=== PATIENT | female | born 1970 | race Caucasian/White ===

== ENCOUNTER 2017-03-18 15:25 | Emergency (ER) | payer MEDICAID ==
[~2017-03-18] VITALS: Ht 160 cm; Wt 93.0 kg
[~2017-03-18 15:25] MED LIST: UNKNOWN BP MED
[2017-03-18 15:28] VITALS: BP 146/78
--- NOTE | 2017-03-18 17:20 | NUR ---
PT AMBULATED TO BED 3.
--- NOTE | 2017-03-18 17:25 | NUR ---
47F BIB SELF C/O MID-CHEST PRESSURE, RADIATES TO BACK, 5/10 X 3 DAYS; PT STATES NO TRAUMA OR INJURY TO CHEST AT THIS TIME; PT AA&OX4, PERRLA AT THIS TIME, BL LUNG SOUNDS CLEAR, RR EVEN/UNLABORED, SKIN IS WARM/DRY/INTACT AT THIS TIME; PT STATES NO N/V/D AT THIS TIME; STEADY GAIT; PT PLACED ON A MONITOR, RESTING IN BED WITH HOB ELEVATED AND IN LOWEST POSITION; POSITIONED FOR COMFORT; ER MD MADE AWARE OF STATUS; WILL CONTINUE TO MONITOR.
--- NOTE | 2017-03-18 17:37 | NUR ---
ER MD DR. GIBSON EVALUATING PT AT BEDSIDE.
[2017-03-18 17:59] LABS: BASOPHILS # (AUTO) 0.3 K/uL (0.00-0.22); EOSINOPHILS # (AUTO) 0.1 K/uL (0-0.4); HEMATOCRIT 40.6 % (36-48); HEMOGLOBIN 13.6 g/dL (12.0-16.0); LYMPHOCYTES # (AUTO) 2.9 K/uL (2.5-16.5); MEAN CORPUSCULAR HEMOGLOBIN 28 pg (27-31); MEAN CORPUSCULAR HGB CONC 34 g/dL (33-37); MEAN CORPUSCULAR VOLUME 83 fL (80-94); MONOCYTES # (AUTO) 0.6 K/uL (0.8-1.0); NEUTROPHILS # (AUTO) 5.1 K/uL (1.8-7.7); PLATELET COUNT (AUTO) 346 K/uL (140-450); RED BLOOD CELL COUNT(AUTO) 4.89 MIL/uL (4.20-5.40); RED CELL DISTRIBUTION WIDTH 12.5 % (11.6-13.7)
--- NOTE | 2017-03-18 17:59 | NUR ---
XRAY AT BEDSIDE.
[2017-03-18 18:21] LABS: ALBUMIN 4.1 g/dL (3.4-5.0); CARBON DIOXIDE 27.7 mmol/L (21-32); CREATININE 0.7 mg/dL (0.6-1.3); POTASSIUM 3.7 mmol/L (3.5-5.1); TOTAL BILIRUBIN 0.4 mg/dL (0.0-1.0)
--- NOTE | 2017-03-18 18:35 | NUR ---
ER MD DR. GIBSON REEVALUATING PT AT BEDSIDE.
--- NOTE | 2017-03-18 19:00 | NUR ---
IV removed, catheter intact and site benign. Applied folded 4x4 gauze and tape to stop bleeding. PT TOLERATED PROCEDURE WELL.
[2017-03-18 19:03] VITALS: BP 143/77
--- NOTE | 2017-03-18 19:03 | NUR ---
Patient discharged with v/s stable. Written and verbal after care instructions given and explained. Patient alert, oriented and verbalized understanding of instructions. Ambulatory with steady gait. All questions addressed prior to discharge. ID band removed. Patient advised to follow up with PMD. Rx of IBUPROFEN 600MG TAB & PEPCID 40MG TAB given. Patient educated on indication of medication including possible reaction and side effects. Opportunity to ask questions provided and answered.
== END 2017-03-18 19:03 | disposition home or self-care (01) ==
LOC: MED 15:25
DX: R07.89 Other chest pain (principal); I10 Essential (primary) hypertension; J02.9 Acute pharyngitis, unspecified
CPT/HCPCS: 36415; 71010; 80053; 84484; 85025; 85379; 85610; 85730; 93005; 99285; Q0092

== ENCOUNTER 2017-12-30 11:51 | Emergency (ER) | payer MEDICAID ==
[~2017-12-30] VITALS: Ht 165.1 cm; Wt 113.4 kg
[2017-12-30 11:56] VITALS: BP 170/85
--- NOTE | 2017-12-30 12:03 | NUR ---
PT AMBULATES TO BED 11
--- NOTE | 2017-12-30 12:05 | NUR ---
47Y/F BIB SELF C/O BILAT FOOT PAIN. PT STATES SHE HAD PABLO FOOT PAIN AND EDEMA WHILE ON HER FEET AT WORK X 2 WEEKS. DENIES INJURY. STATES SHE STARTED A NEW JOB THAT REQUIRES HER TO BE ON HER FEET 8 HR/DAY. DENIES SOB. BED DOWN, BEDRAILS UP X 1, ER MD AWARE AND NOTIFIED OF PT STATUS. HX: HTN RX: LISINOPRIL, ASPIRIN ( EVERY OTHER DAY, PT USE FOR PAIN)
--- NOTE | 2017-12-30 12:20 | NUR ---
Patient being evaluated by physician at bedside.
[2017-12-30 13:44] VITALS: BP 168/81
== END 2017-12-30 13:44 | disposition home or self-care (01) ==
LOC: MED 11:51
DX: R60.0 Localized edema (principal); I10 Essential (primary) hypertension
CPT/HCPCS: 99283